=== PATIENT | male | born 1995 | race Caucasian/White ===

== ENCOUNTER 2017-08-15 11:39 | Emergency (ER) | payer OTHER ==
--- NOTE | 2017-08-15 12:04 | CPEKG ---
Heart Rate: 49 RR Interval: 1224 P-R Interval: 156 QRSD Interval: 100 QT Interval: 440 QTC Interval: 398 P [place]: 49 QRS [place]: -25 T Wave [place]: 7 EKG Severity - OTHERWISE NORMAL ECG - EKG Impression: SINUS BRADYCARDIA EKG Impression: BORDERLINE LEFT AXIS DEVIATION Electronically Signed By: Aaron Pacheco 15-Aug-2017 15:13:37
[2017-08-15 13:01] LABS: % IMMATURE GRANULYOCYTES 0.4 % (0.0-1.1); ABSOLUTE IMMATURE GRANULOCYTES 0.03 10^3/uL (0.00-0.10); ADD DIFF? NO; ADD MORPH? NO; ADD SCAN? NO; ATYPICAL LYMPHOCYTE FLAG 10 (0-99); FRAGMENT RBC FLAG 0 (0-99); HEMATOCRIT 45.7 % (40.0-51.0); HEMOGLOBIN 14.7 g/dL (13.7-17.5); LEFT SHIFT FLG 0 (0-99); LIPEMIA HEMOLYSIS FLAG 80 (0-99); MEAN CELL HEMOGLOBIN 27.8 pg (27.9-34.1); MEAN CELL HEMOGLOBIN CONCENTR. 32.2 g/dL (32.4-36.7); MEAN CELL VOLUME 86.6 fL (81.5-99.8); MEAN PLATELET VOLUME 12.1 fL (8.7-11.7); PLATELET CLUMPS FLAG 10 (0-99); PLATELET COUNT 187 10^3/uL (150-400); RED BLOOD CELL COUNT 5.28 10^6/uL (4.40-6.38); RED CELL DISTRIBUTION WIDTH 13.2 % (11.5-15.2)
[2017-08-15 13:17] LABS: ANION GAP 9 mEq/L (8-16); CALCIUM 9.5 mg/dL (8.5-10.4); CARBON DIOXIDE 28 mEq/l (22-31); CHLORIDE 101 mEq/L (97-110); CREATININE 0.9 mg/dL (0.7-1.3); GLOMERULAR FILTRATION RATE > 60; GLUCOSE 85 mg/dL (70-100); POTASSIUM 4.2 mEq/L (3.5-5.2); SODIUM 138 mEq/L (134-144)
[2017-08-15 13:22] VITALS: RESP 18
[2017-08-15 13:30] LABS: TROPONIN I < 0.012 ng/mL (0.000-0.034)
[2017-08-15] MEDS ORDERED: KETOROLAC 30 MG/1 ML SDV IVP ONE (14:00)
--- NOTE | 2017-08-15 14:04 | EDPHY ---
H & P HPI/ROS: Chief complaint. Chest pain HPI. 22 male with left-sided chest pain since last evening. He describes as sharp without radiation. Hurts to take a deep breath. Not worse with exertion. No shortness of breath. No fever cough. No unusual leg pain or swelling. It has been constant for 18 hours. He denies cocaine or amphetamine use. No abdominal pain. ROS Constitutional. no fever/chills, no weakness Eyes. no problems with vision ENT. no sore throat, no nasal drainage Cardiovascular. Sharp left-sided chest pain Respiratory. no shortness of breath, no cough Abdominal. no abdominal pain, no nausea/vomiting, no diarrhea . no problems urinating MS. no calf pain/swelling, no neck/back pain, no joint pain Skin. no rash Lymph. no swollen glands Neuro. no headache, no dizziness, no difficulty walking or with speech Past Medical/Surgical History: Healthy Social History: Single, nonsmoker, no alcohol Smoking Status: Never smoked Physical Exam: General Appearance: Alert well-developed male mild distress vital signs are stable Eyes: Pupils equal and round no pallor or injection. ENT, Mouth: Mucous membranes are moist. Respiratory: There are no retractions, lungs are clear to auscultation. Cardiovascular: Regular rate and rhythm. Tenderness to palpation left anterior chest wall Gastrointestinal: Abdomen is soft and nontender, no masses, bowel sounds normal. Neurological: Awake and alert, sensory and motor exams grossly normal. Skin: Warm and dry, no rashes. Musculoskeletal: Neck is supple nontender. Extremities symmetrical, full range of motion. Psychiatric: Patient is oriented X 3, there is no agitation. Constitutional: Initial Vital Signs Temperature (C) 36.6 C 08/15/17 11:42 Heart Rate 58 L 08/15/17 11:42 Respiratory Rate 16 08/15/17 11:42 Blood Pressure 118/84 H 08/15/17 11:42 O2 Sat (%) 98 08/15/17 11:42 O2 Delivery Mode Room Air Allergies/Adverse Reactions: No Known Allergies Allergy (Unverified 12/14/10 19:11) Home Medications: Medication Instructions Recorded NO HOME MEDS 12/14/10 Medical Decision Making - Diagnostics EKG Interpretation: EKG interpreted by me shows sinus rhythm with normal and axis. QRS is normal there is no significant ST elevation or depression. No arrhythmia. The rate is 49 Imaging Results: One-view chest x-ray interpreted by me is normal Procedures: IV normal saline, monitor. IV Toradol ED Course/Re-evaluation: Re-evaluation 3:00 p.m.--patient much better after Toradol. No symptoms now Patient and I discussed imaging lab EKG studies. We discussed treatment plan including criteria for return and importance of follow-up and further evaluation. He expresses understanding and agreement Differential Diagnosis: I think this is muscular etiology. I considered acute coronary syndrome, pneumonia, pneumothorax, pulmonary embolus - Data Points Laboratory Results: Laboratory Results 08/15/17 12:45 08/15/17 12:45 Medications Given: Discontinued Medications Ketorolac Tromethamine (Toradol) 30 mg IVP EDNOW ONE Stop: 08/15/17 14:01 Last Admin: 08/15/17 14:21 Dose: 30 mg Departure - Departure Disposition: Home, Routine, Self-Care Clinical Impression: Chest pain Qualifiers: Chest pain type: other chest pain Qualified Code(s): R07.89 - Other chest pain ; R07.8 - Other chest pain Condition: Good Instructions: Chest Wall Pain (ED) Additional Instructions: Ibuprofen 600 mg every 6 hours for discomfort. Easy activity next 2-3 days. Heat to chest wall. Return for worsening symptoms. Re-evaluation in 2 days if not improved Referrals: NONE *PRIMARY CARE P,. [Primary Care Provider] - As per Instructions Katelyn De Oliveira MD [Doctor of Osteopathy] - 2-3 days, if not improved Stand Alone Forms: Work Excuse
[2017-08-15 15:17] VITALS: BP 113/60; PULSE 52; TEMP 98.1; O2SAT 96
== END 2017-08-15 15:16 | disposition home or self-care (01) ==
DX: R07.89 Other chest pain (principal)
CPT/HCPCS: 96374; J1885

== ENCOUNTER 2018-10-30 21:05 | Emergency (ER) | payer OTHER ==
[2018-10-30 21:10] VITALS: BP 126/38
--- NOTE | 2018-10-30 21:27 | EDPHY ---
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 No extensor deficits. No flexor deficits. No paresthesia distally. [ PHYSICAL EXAM (Prior to examination, patient consented to physical exam, hands were washed and my usual and customary physical exam procedures followed) 1) GENERAL: Well-developed, well-nourished, alert and oriented. Appears to be in no acute distress. 2) HEAD: Normocephalic 3) HEENT: sclera anicteric 4) LUNGS: Breathing comfortably. 5) SKIN: Right 2nd digit dorsal aspect proximal phalanx 2 cm laceration superficial flap with viable flap tissue. 6) MUSCULOSKELETAL: FDP, FDS intact. Extensor function MCP, PIP, D IP intact. 7) NEUROLOGIC: Full sensation two-point discrimination intact distally Smoking Status: Never smoked Constitutional: Initial Vital Signs Temperature (C) 36.3 C 10/30/18 21:08 Heart Rate 47 L 10/30/18 21:08 Respiratory Rate 16 10/30/18 21:08 Blood Pressure 126/38 H 10/30/18 21:08 O2 Sat (%) 97 10/30/18 21:08 O2 Delivery Mode Room Air Allergies/Adverse Reactions: No Known Allergies Allergy (Verified 10/30/18 21:08) Home Medications: Medication Instructions Recorded NO HOME MEDS 12/14/10 MDM/Departure - [facility] Procedures: Procedure: Laceration repair. I explained the indications, risks and benefits for both laceration repair and anesthetic administration. Verbal consent was obtained from the patient. The laceration on the right index finger was anesthetized using 0.5% bupivicaine without epinephrine digital nerve block. After anesthetic administered the patient was observed for a period of time and had no apparent adverse effects. The wound was cleaned, prepped, draped in normal sterile fashion and explored to its base. No foreign body seen, no foreign bodies palpated. There were no deep structures involved. No tendon injury was identified. The wound was repaired with 3 simple interrupted 5 O Prolene sutures . The wound repair was simple. The procedure was performed by myself. Patient has been informed that scarring will occur, although efforts have been made to minimize this. ED Course/Re-evaluation: Care of patient under supervision of secondary supervising physician Dr Rae Karimi. - Depart Disposition: Home, Routine, Self-Care Clinical Impression: Laceration of right index finger Qualifiers: Encounter type: initial encounter Damage to nail status: without damage Foreign body presence: without foreign body Qualified Code(s): S61.210A - Laceration without foreign body of right index finger without damage to nail, initial encounter Condition: Good Instructions: Care For Your Stitches (ED), Laceration (ED) Additional Instructions: Return to the ER if you develop redness, swelling, discharge, warmth to the wound, red streaks going up your arm, or any other symptoms that concern you. Stand Alone Forms: Work Comp Follow Up Referrals: Return, to the ER in 10 days for suture removal [Other] - As per Instructions
== END 2018-10-30 21:55 | disposition home or self-care (01) ==
PROC: 0HQFXZZ Repair Right Hand Skin, External Approach (ICD-10-PCS; principal; 2018-10-30)
DX: S61.210A Laceration without foreign body of right index finger without damage to nail, initial encounter (principal); W26.8XXA Contact with other sharp object(s), not elsewhere classified, initial encounter; Y92.511 Restaurant or cafe as the place of occurrence of the external cause; Y93.G1 Activity, food preparation and clean up; Y99.0 Civilian activity done for income or pay